=== PATIENT | male | born 1955 | race Caucasian/White ===

== ENCOUNTER 2022-07-25 07:51 | Emergency (ER) | payer MEDICARE ==
[~2022-07-25] VITALS: Ht 185.4 cm; Wt 113.6 kg
[~2022-07-25 07:51] MED LIST: ASPI-611 PO; ATOR20TA66 PO; CLOP75TA9 PO; FENO134C21 PO; HYDR-4353 PO; LOSA100T4 PO; METF-436 PO; MULT-1085 PO; THIA100T70 PO; TRIA10.8 BOTHNARES; VITA-268 PO
[2022-07-25 08:12] VITALS: BP 128/68
== END 2022-07-25 10:43 | disposition left against medical advice (07) ==
LOC: ER 07:52
DX: R22.0 Localized swelling, mass and lump, head (principal); Z53.21 Procedure and treatment not carried out due to patient leaving prior to being seen by health care provider
CPT/HCPCS: 99281